=== PATIENT | female | born 1965 | race Caucasian/White ===

== ENCOUNTER 2022-03-07 02:52 | Emergency (ER) | payer OTHER, SELFPAY ==
[2022-03-07 02:52] VITALS: BMI 25.8
--- NOTE | 2022-03-07 03:37 | ED_ITS ---
HPI - Chest Pain General Chief Complaint: Cardiac Arrest/CPR Stated Complaint: chest pain Time Seen by Provider: 03/07/22 03:37 Source: family (spouse) Mode of arrival: ambulatory Limitations: other (unresponsive) History of Present Illness HPI narrative: 56 yo female with hx of MS, depression, drinks alcohol woke up from sleep with chest pain vomiting in the waiting room and then collapsed. ED team picked up off the floor placed on stretcher and chest compressions started on arrival - to room CPR started immediately MD complaint: chest pain Onset (ago): minute(s) (just prior to arrival ) Timing of current episode: constant Prior episodes: No Onset: during rest Severity: severe Quality: other ( pain ) Context: other (woke up from sleep like this) Associated symptoms: vomiting Treatment prior to arrival: none Related Data Allergies Allergy/AdvReac Type Severity Reaction Status Date / Time Unable to Assess Allergy Verified 03/07/22 04:15 Review of Systems Review of Systems: ROS unable to be obtained due to being unresponsive [facility] Past Medical History Attestation statement: The following information was validated with the patient. Medical History Anxiety Multiple sclerosis Social History Social History (Updated 03/07/22 @ 03:51 by Ivett Linn DO) Patient Tobacco Use Status: Tobacco use Unknown Advance Directives: No Advance Directives Information Provided: No Physical Exam Vital Signs: Vital Signs: BMI result Body Mass Index 25.8 Appearance: Patient found collapsed, dusky diaphoretic, agonal breathing on waiting room floor, emesis on shirt Eyes: Pupils fixed and dilated ENT: Pharynx normal but she is clenched down gurgling sounds atraumatic Neck: Normal inspection. Neck supple. CVS: absent heart sounds and no pulse felt Respiratory: agonal breathing noted Abdomen: Soft and nontender. Skin: Skin warm and diaphoretic. dusky skin color. Extremities: No lower extremity edema. Neuro: no response to painful stimuli Course Course Course Narrative: will consult ME ME notified- 350am accepted by ME 30 minutes of cardiac arrest multiple shocks 7+ with multiple rounds of epi including amiodarone and lidocaine patient remained in vfib one episode of PEA that went back to VTACH/vfib. after 30 minutes of high quality CPR without any organized rhythm and no ROSC resuscitative efforts were held after patient went to PEA for the last 2 to 3 rounds of CPR without ROSC. narcan was also given along with normal BS. no pulses felt, no heart sounds, absent cardiac activity on US, pupils fixed and dilated, no neurologic response - time of 333am. Procedures Procedure Narrative Procedure Narrative: bedside cardiac ECHO - limited 333am mild movement of valves noted but no organized cardiac activity EJ/Peripheral Line Neck L: Time Out Performed: Yes Skin Cleansed in Sterile Fashion: Yes Size (gauge): 20 IV Secured and Dressing Applied: Yes Patient Tolerated Procedure: well and no complications Intubation Time out performed: Yes sedative: Etomidate Mg Given: 20 paralytic: Rocuronium Mg Given: 50 Laryngoscope: other (4 glidescope) ET Tube Size: 7.5 ET Tube Uncuffed: Yes Tube Secured Depth (cm): 21 Tube Secured Location: teeth Tube Placement Confirmation: visualized tube passing through cords, equal breath sounds bilaterally, no breath sounds over epigastrium and confirmation by capnometry Patient Tolerated Procedure: well and no complications Intubation Complications: none MDM - Chest Pain MDM Narrative Medical decision making narrative: 56 yo female with c/o chest pain prior to arrival witnessed cardiac arrest with 30 minutes of CPR in ED with multiple shocks, epi, amio and lidocaine - no ROSC, patient went to PEA after discussion with resuscitative efforts were stopped. Suspect massive MS prior to arrival. ME to be notified Lab Data Labs: Lab Results 03/07/22 Range/Units 03:00 POC Glucose 93 (60-115) mg/dL Critical Care Time Critical Care Time Critical Care Time: Yes Total Critical Care Time: 35 Attestation: family discussion, ME consultation, total care I attest to this time spent taking care of the patient Discharge Plan Discharge Clinical Impression: Cardiac arrest Patient Disposition: Interventions: Organ Donor Nursing Doc/Post Mortem care Last Done: 03/07/22 04:19 Discharge Date/Time: 03/07/22 05:53 Date/Time: 03/07/22 03:33
--- NOTE | 2022-03-07 04:13 | PC.NURSE ---
This Us[facility] called the Medical Examiners office at [phone] per ,awaiting a call back.ME accepted at [phone] .
--- NOTE | 2022-03-07 04:21 | PC.NURSE ---
code blue sheet completed. [place] accepted , [facility] contacted Accepted [id number].
[2022-03-07 06:28] LABS: Glucose, Whole Blood 93 mg/dL (60-115)
== END 2022-03-07 05:53 | disposition expired ==
PROVIDERS: Emergency Provider Emergency Medicine
DX: I46.9 Cardiac arrest, cause unspecified (principal); R07.9 Chest pain, unspecified; R11.10 Vomiting, unspecified; F41.9 Anxiety disorder, unspecified; G35 Multiple sclerosis
CPT/HCPCS: 31500; 82947; 96374; 96375; 99283; 99285; J0171; J0282; J3475